=== PATIENT | male | born 1975 | race Caucasian/White ===

== ENCOUNTER 2017-09-19 19:21 | Emergency (ER) | payer OTHER ==
[~2017-09-19] VITALS: Ht 165.1 cm; Wt 90.7 kg
[2017-09-19] MEDS ORDERED: PANADOL EXTRA500 MG (19:37)
== END 2017-09-19 21:48 | disposition home or self-care (01) ==
LOC: ER 19:21
DX: B34.9 Viral infection, unspecified (principal)